=== PATIENT | male | born 1965 | race Caucasian/White ===

== ENCOUNTER 2017-03-25 12:22 | Inpatient (IN) | payer OTHER ==
--- NOTE | 2017-03-25 14:21 | EDPHY ---
H & P Stated Complaint: Abd pain, redness at old incision site,pain;referred by PCP for eval Source: Patient Exam Limitations: No limitations - Personal History Current Tetanus Diphtheria and Acellular Pertussis (TDAP): Yes - Medical/Surgical History Other PMH: Diverticulitis w/colostomy 2001. Colostomy takedown 2002. HTN - Social History Smoking Status: Never smoked HPI/ROS: CHIEF COMPLAINT: Abdominal pain, redness, shortness of breath HISTORY OF PRESENT ILLNESS: The patient complains of 3 days history of redness and pain around his abdominal incision. Patient has a history of perforated diverticulitis in 2001. He had a subsequent laparotomy with partial colectomy and colostomy placement. This was reversed 1 year later in 2002. He then developed a hernia in the same area which was repaired with mesh in 2003. No complications with this. For the past few days he has had pain, redness and swelling in this area. It is worse with palpation and movement. Yesterday was the worst day of the redness, and today has improved. No fever or chills that he has felt, but is primary care physician's office today the told me did have a fever. He has had occasional diarrhea and constipation. No bloody stools no trauma or injury. He was at his PCP's up today due to concern for heart disease due to his brother's recent from hypertrophic cardiomyopathy. He has no chest pain. He has had some occasional shortness of breath over the past month. No lower extremity erythema edema or pain. No other associated complaints or modifying factors. Patient's PCP contacted me at 10:36 a.m. notified me that he was sending the patient our facility for the above and for workup for possible strangulated hernia. At time of examination, the patient has been at this facility for 1 hour minutes. He has been in his room for less than 10 minutes at time my examination. REVIEW OF SYSTEMS: Ten systems reviewed and are negative unless otherwise noted in the HPI PAST MEDICAL HISTORY: Hypertension, ruptured diverticulitis status post surgeries as below PAST SURGICAL HISTORY: laparotomy 2002 partial colectomy and colostomy placement Laparotomy 2002 for colostomy takedown and anastomosis Laparotomy 2003 for visual hernia with mesh placement SOCIAL HISTORY: Nonsmoker. Occasional alcohol. Lives in [place]. Works as a assistant manager of operations for [employer] FAMILY HISTORY: Noncontributory EXAMINATION General Appearance: Alert, no distress Head: normocephalic, atraumatic Eyes: Pupils equal and round, no conjunctival pallor or injection ENT, Mouth: Mucous membranes moist Neck: Normal inspection, supple, non-tender Respiratory: Lungs are clear to auscultation Cardiovascular: Regular rate and rhythm Gastrointestinal: Abdomen is soft and nontender Back: non-tender, no bony abnormalities Neurological: A&O, nonfocal, normal gait Skin: Warm and dry, no rash Extremities: Nontender, no pedal edema Psychiatric: Mood and affect normal DIFFERENTIAL DIAGNOSES: Including but not limited to strangulated hernia, incarcerated hernia, abscess, seroma, cellulitis, enteritis, colitis, diverticulitis MDM: 2:08 p.m. Mild abdominal pain with erythema around the previous surgical incision. Patient was sent by primary care physician to rule out hernia. I have ordered CT scan of the abdomen pelvis. Vital signs are stable. No acute distress. 3:40 p.m. Notified by radiologist Dr. Potter. CT scan of the abdomen pelvis reveals a fluid collection of uncertain etiology between the linea alba and the surgical mesh. No hernia appreciated. 3:55 p.m. Case discussed with on-call surgeon Dr. De Souza. He will evaluate the patient in the emergency department I have re-evaluated the patient. He is resting comfortably with minimal pain. No vomiting. Vital signs stable. He has a NPO of solid since Saturday night. He had water at 8:00 a.m. this morning. 5:10 p.m. At this time I have discussed the case with Dr. Castrejon. He will assume care the patient. Patient disposition is pending surgical consultation in the emergency department. I have re-evaluated him at this time. He is resting comfortably in no acute distress. Minimal pain. (Emile Goldstein) Constitutional: Initial Vital Signs Temperature (C) 37 C 03/25/17 12:30 Heart Rate 98 03/25/17 12:30 Respiratory Rate 18 03/25/17 12:30 Blood Pressure 114/75 03/25/17 12:30 O2 Sat (%) 94 03/25/17 12:30 O2 Delivery Mode Room Air Allergies/Adverse Reactions: No Known Allergies Allergy (Verified 03/25/17 17:58) Home Medications: Medication Instructions Recorded Lisinopril [Zestril 10 mg (*)] 10 mg PO DAILY 03/25/17 Medical Decision Making Other Provider: PHYSICIAN DOCUMENTATION: The patient was evaluated and managed by the Physician Battery Filler and myself. I have reviewed the chart and agree with the findings and plan of care as documented, except abdominal exam where patient states tenderness to palpation over reddened area. Seen personally by myself at 1810. History confirmed as 3 days of symptoms, pain only 4/10 lying in the bed, declined pain medications. Physical findings as follows: Visible erythema/redness surrounding the periumbilical incision. CT performed shows fluid collection per Jovanys, rim enhancing on ventral surface of mesh. Seen by Dr. De Souza in the emergency department. Plan for admission to his service, for incision and drainage of likely infected seroma. I am the secondary supervising physician. (Yair Castrejon) - Data Points Laboratory Results: Laboratory Results 03/25/17 14:45 03/25/17 14:45 Medications Given: Potassium Chloride/Dextrose/Sod Cl (D5w 1/2 Ns W/ 20 Kcl/L) 1,000 mls @ 125 mls /hr IV CONT JESSY Stop: 09/21/17 23:14 Last Admin: 03/27/17 10:03 Dose: 1,000 mls Ertapenem 1 gm/ Sodium (Chloride) 100 mls @ 200 mls/hr IV DAILY JESSY PRN Reason: Protocol Stop: 04/24/17 23:29 Last Admin: 03/27/17 08:12 Dose: 100 mls Ketorolac Tromethamine (Toradol) 15 mg IVP Q6 JESSY Stop: 03/31/17 00:00 Last Admin: 03/27/17 11:50 Dose: 15 mg Lisinopril (Zestril) 10 mg PO DAILY JESSY Stop: 09/22/17 08:59 Last Admin: 03/27/17 08:12 Dose: 10 mg Oxycodone/Acetaminophen (Percocet 5/325) 1 - 2 tab PO Q4 PRN PRN Reason: Pain, Severe Able to Take PO Stop: 04/04/17 23:09 Last Admin: 03/26/17 10:02 Dose: 1 tab Discontinued Medications Bupivacaine HCl (Sensorcaine 0.5% Vial) Confirm Administered Dose 30 ml .ROUTE .STK-MED ONE Stop: 03/25/17 21:53 Last Admin: 03/25/17 22:58 Dose: 30 ml Cefazolin Sodium/Dextrose (Ancef 2 Gm (Premix)) 100 mls @ 200 mls/hr IV ONCALL ONE PRN Reason: Protocol Stop: 03/25/17 18:34 Last Admin: 03/25/17 22:01 Dose: 100 mls Lactated Ringer's (Lr) 1,000 mls @ 0 mls/hr IV ONCE ONE PRN Reason: Per Protocol Stop: 03/25/17 21:30 Last Admin: 03/25/17 23:38 Dose: Not Given Ketorolac Tromethamine (Toradol) 15 mg IVP ONCE PRN PRN Reason: PAIN,MANNING Stop: 03/25/17 22:00 Last Admin: 03/25/17 19:28 Dose: 15 mg Midazolam HCl (Versed) 2 mg IVP ONCALL ONE Stop: 03/25/17 21:50 Last Admin: 03/25/17 21:57 Dose: 2 mg Departure - Departure Disposition: [facility] Clinical Impression: Abdominal wall seroma Qualifiers: Encounter type: initial encounter Qualified Code(s): T88.8XXA - Other specified complications of surgical and medical care, not elsewhere classified, initial encounter Condition: Good
[2017-03-25] MEDS ORDERED: IOPAMIDOL (ISOVUE-300) 100 ML BTL ONE (15:05)
[2017-03-25 15:06] LABS: % IMMATURE GRANULYOCYTES 1.1 % (0.0-1.1); ABSOLUTE IMMATURE GRANULOCYTES 0.19 10^3/uL (0.00-0.10); ADD DIFF? NO; ADD MORPH? NO; ADD SCAN? NO; ATYPICAL LYMPHOCYTE FLAG 0 (0-99); FRAGMENT RBC FLAG 0 (0-99); HEMATOCRIT 46.8 % (40.0-51.0); LEFT SHIFT FLG 0 (0-99); LIPEMIA HEMOLYSIS FLAG 90 (0-99); MEAN CELL HEMOGLOBIN 29.7 pg (27.9-34.1); MEAN CELL HEMOGLOBIN CONCENTR. 34.2 g/dL (32.4-36.7); MEAN CELL VOLUME 86.8 fL (81.5-99.8); MEAN PLATELET VOLUME 10.7 fL (8.7-11.7); PLATELET CLUMPS FLAG 0 (0-99); PLATELET COUNT 329 10^3/uL (150-400); RED BLOOD CELL COUNT 5.39 10^6/uL (4.40-6.38); RED CELL DISTRIBUTION WIDTH 11.9 % (11.5-15.2)
[2017-03-25 15:20] LABS: ALANINE AMINOTRANSFERASE 35 IU/L (21-72); ALBUMIN 4.1 g/dL (3.5-5.0); ALKALINE PHOSPHATASE 88 IU/L (38-126); ANION GAP 14 mEq/L (8-16); ASPARTATE AMINOTRANSFERASE 23 IU/L (17-59); BILIRUBIN,TOTAL 1.1 mg/dL (0.1-1.4); BILIRUBIN-CONJUGATED 0.4 mg/dL (0.0-0.5); BILIRUBIN-UNCONJUGATED 0.7 mg/dL (0.0-1.1); CALCIUM 9.3 mg/dL (8.5-10.4); CARBON DIOXIDE 24 mEq/l (22-31); CHLORIDE 96 mEq/L (97-110); GLOMERULAR FILTRATION RATE > 60; GLUCOSE 84 mg/dL (70-100); POTASSIUM 4.5 mEq/L (3.5-5.2); SODIUM 134 mEq/L (134-144); TOTAL PROTEIN 7.4 g/dL (6.3-8.2)
[2017-03-25 15:28] LABS: INR 1.07 (0.83-1.16); PROTIME(PATIENT) 13.8 SEC (12.0-15.0)
[2017-03-25 15:29] LABS: APTT 34.9 SEC (23.0-38.0)
[2017-03-25] MEDS ORDERED: ceFAZolin 2 GM/DEXTROSE 100 ML IV ONE (18:05)
[2017-03-25] MEDS ORDERED: ONDANSETRON 4 MG/2 ML VIAL IVP PRN ×2 (18:42→22:25)
[2017-03-25] MEDS ORDERED: HYDROmorphONE/DILAUDID 1 MG/ML INJ IVP PRN ×2 (18:42→22:25)
[2017-03-25] MEDS ORDERED: D5W 1/2 NS W/ 20 KCl/L 1,000 ML IV SCH (18:45)
--- NOTE | 2017-03-25 18:48 | PDGENHP ---
History & Physical Chief Complaint: ABDOMINAL WALL PAIN History of Present Illness: 51-YEAR-OLD MALE WITH ERYTHEMA AND TENDERNESS AND FLUCTUANCE ON HIS ANTERIOR ABDOMINAL WALL AT THE OLD COLECTOMY INCISION. PATIENT HAS A HISTORY OF RUPTURED DIVERTICULITIS WITH A COLOSTOMY FOLLOWED BY COLOSTOMY TAKEDOWN AND THAT FOLLOWED BY VENTRAL HERNIA REPAIR WITH MESH. LAST SURGERY WAS IN 2003. ADMITTED AT THIS TIME FOR I AND D OF ABDOMINAL WALL ABSCESS. CT SHOWS A PROBABLE CHRONIC SEROMA THERE IS NO DEFINITE EVIDENCE OF A RECURRENT HERNIA. RISKS AND OPTIONS BEEN FULLY DISCUSSED AND HE WISHES TO PROCEED Pertinent Past, Social, Family History: PAST MEDICAL HISTORY INCLUDES HYPERTENSION/PERFORATED DIVERTICULITIS/VENTRAL HERNIA/STATUS POST COLECTOMY, COLOSTOMY, COLOSTOMY TAKEDOWN, AND VENTRAL HERNIA REPAIR. REVIEW OF SYSTEMS REVEALS NO MAJOR MEDICAL PROBLEMS ON FULL 10 POINT REVIEW OF SYSTEMS SPECIFICALLY DOES NOT SMOKE OR HAVE ANY CARDIOPULMONARY SYMPTOMS. FAMILY HISTORY IS NONCONTRIBUTORY. ALLERGIES ARE NONE. MEDICATIONS ARE LISINOPRIL Relevant Physical Exam: GENERAL: OVERWEIGHT BUT HEALTHY 51-YEAR-OLD MALE NO ACUTE DISTRESS WITH LOW-GRADE FEVER. CHEST CLEAR AND SYMMETRIC. COR REGULAR RHYTHM WITHOUT MURMURS. ABDOMEN: SOFT SLIGHTLY DISTENDED AND OVERWEIGHT/15 X 10 AREA OF ERYTHEMA OVER PREVIOUS MIDLINE SURGICAL SCAR/NO MASSES OR HERNIAS PALPABLE. GENITALIA NORMAL. EXTREMITIES FULL PULSES FULL RANGE OF MOTION. NEUROLOGIC EXAM IS PHYSIOLOGIC AND SYMMETRIC. SKIN EXAM REVEALS NO SIGNIFICANT LESIONS OTHER THAN THE ERYTHEMA AROUND THE INCISION Cardiorespiratory Assessment: IMPRESSION: INFECTED CHRONIC SEROMA. PLAN: I AND D OF THIS/RISKS AND OPTIONS FULLY DISCUSSED/HE REALIZES HE MAY EVENTUALLY NEED A MESH REMOVED IF INVOLVED IN THIS INFECTION/HE ALSO REALIZES HE IS SUSCEPTIBLE TO RECURRENT HERNIAS
[2017-03-25] MEDS ORDERED: KETOROLAC 15 MG/1 ML SDV ONE (19:09)
[2017-03-25] MEDS ORDERED: KETOROLAC 15 MG/1 ML SDV IVP PRN (19:18)
[2017-03-25 19:53] LABS: COLOR YELLOW; LEUKOCYTE ESTERASE,URINE NEGATIVE (NEGATIVE); MUCUS 2+ /lpf (NONE-1+); NITRITE,URINE NEGATIVE (NEGATIVE)
[2017-03-25] MEDS ORDERED: CEFAZOLIN 2 GM/DEXTROSE/100 ML BAG IV ONE (20:49)
[2017-03-25] MEDS ORDERED: LR 1,000 ML IV ONE (21:29)
[2017-03-25] MEDS ORDERED: MIDAZOLAM 2 MG/2 ML VIAL IVP ONE (21:49)
[2017-03-25] MEDS ORDERED: BUPIVACAINE 0.5% 30 ML SDV ONE (21:52)
--- NOTE | 2017-03-25 21:52 | PDANEPAE ---
ANE Past Medical History - Cardiovascular History Hx Hypertension: Yes Hx Arrhythmias: No Hx Chest Pain: No Hx Coronary Artery / Peripheral Vascular Disease: No Hx CHF / Valvular Disease: No Hx Palpitations: No - Pulmonary History Hx COPD: No Hx Asthma/Reactive Airway Disease: No Hx Recent Upper Respiratory Infection: No Hx Oxygen in Use at Home: No Hx Sleep Apnea: No - GI History GERD: no Hx Gastrointestinal Disorders: Yes ANE Review of Systems Review of Systems: - Exercise capacity METS (RN): 4 METS ANE Patient History - Allergies Allergies/Adverse Reactions: No Known Allergies Allergy (Verified 03/25/17 17:58) - Home Medications Home Medications: Lisinopril [Zestril 10 mg (*)] 10 mg PO DAILY 03/25/17 [Last Taken 03/25/17 08: 00] - NPO status NPO Since - Liquids (Date): 03/25/17 NPO Since - Liquids (Time): 04:00 NPO Since - Solids (Date): 03/22/17 NPO Since - Solids (Time): 12:00 - Anes Hx Anes Hx: no prior problems - Smoking Hx Smoking Status: Never smoked ANE Labs/Vital Signs - Labs Result Diagrams: 03/25/17 14:45 03/25/17 14:45 - Vital Signs Blood Pressure: 102/68 Heart Rate: 98 Respiratory Rate: 18 O2 Sat (%): 91 Height: 170.18 cm Weight: 122.47 kg ANE Physical Exam - Airway Neck exam: FROM Mallampati Score: Class 2 Mouth exam: normal dental/mouth exam - Pulmonary Pulmonary: no respiratory distress, no rales or rhonchi, clear to auscultation - Cardiovascular Cardiovascular: regular rate and rhythym, no murmur, rub, or gallop - ASA Status ASA Status: II ANE Anesthesia Plan Anesthesia Plan: general endotracheal anesthesia Total IV Anesthesia: No
[2017-03-25] MEDS ORDERED: MIDAZOLAM 2 MG/2 ML VIAL ONE (21:53)
[2017-03-25] MEDS ORDERED: PROPOFOL 200 MG/20 ML VIAL ONE (21:59)
[2017-03-25] MEDS ORDERED: fentaNYL 100 MCG/2 ML INJ ONE ×2 (21:59→22:18)
[2017-03-25] MEDS ORDERED: ONDANSETRON 4 MG/2 ML VIAL ONE (21:59)
[2017-03-25] MEDS ORDERED: DEXAMETHASONE 4 MG/ML VIAL ONE (21:59)
[2017-03-25] MEDS ORDERED: LIDOCAINE 2% 5 ML SDV ONE (22:02)
[2017-03-25] MEDS ORDERED: ROCURONIUM 50 MG/5 ML VIAL ONE (22:03)
[2017-03-25] MEDS ORDERED: PHENYLEPHRINE HCL 100 MCG/ML SYR ONE (22:17)
[2017-03-25] MEDS ORDERED: PROMETHAZINE HCL 25 MG/ML INJ IVP PRN (22:25)
[2017-03-25] MEDS ORDERED: HYDROCODONE/APAP 5/325 TAB PO PRN (22:25)
[2017-03-25] MEDS ORDERED: MEPERIDINE 25 MG/ML SYR IVP PRN (22:25)
[2017-03-25] MEDS ORDERED: LR 500 ML IV PRN (22:25)
[2017-03-25] MEDS ORDERED: NALOXONE HCL 0.4 MG/ML INJ IVP PRN (22:25)
[2017-03-25] MEDS ORDERED: fentaNYL 100 MCG/2 ML INJ IVP PRN (22:25)
[2017-03-25] MEDS ORDERED: OXYCODONE/APAP 5/325 TAB PO PRN (22:25)
[2017-03-25] MEDS ORDERED: ACETAMINOPHEN 500 MG TAB PO PRN (22:25)
[2017-03-25] MEDS ORDERED: PHENYLEPHRINE 10 MG/ML SDV ONE (22:36)
[2017-03-25] MEDS ORDERED: SUGAMMADEX SODIUM 200 MG/2 ML VIAL IVP ONE (22:42)
[2017-03-25] MEDS ORDERED: KETOROLAC 30 MG/1 ML SDV ONE (22:42)
--- NOTE | 2017-03-25 23:06 | POSTANESTH ---
Post Anesthetic Evaluation Cardiovascular Status: Normal, Stable Respiratory Status: Normal, Stable Level of Consciousness/Mental Status: Can Participate in Eval Pain Control: Adequate, Prn Tx Ordered Nausea/Vomiting Control: Adequate, Prn Tx Ordered Complications Possibly Related to Anesthesia: None Noted
--- NOTE | 2017-03-25 23:07 | POSTOPPROG ---
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
[2017-03-25] MEDS ORDERED: HYDROmorphONE/DILAUDID 2 MG/ML INJ IVP PRN (23:10)
[2017-03-25] MEDS: KETOROLAC 15 MG/1 ML SDV IVP SCH (23:55)
[2017-03-26] MEDS: D5W 1/2 NS W/ 20 KCl/L 1,000 ML IV SCH ×3 (00:07→18:18)
[2017-03-26] MEDS: ERTAPENEM 1 GM in NS 100 ML IV SCH ×2 (00:07→09:44)
[2017-03-26] MEDS: OXYCODONE/APAP 5/325 TAB PO PRN ×2 (01:35→10:02)
[2017-03-26 04:49] LABS: ABSOLUTE IMMATURE GRANULOCYTES 0.15 10^3/uL (0.00-0.10); ADD DIFF? NO; ADD MORPH? NO; ADD SCAN? NO; ATYPICAL LYMPHOCYTE FLAG 0 (0-99); FRAGMENT RBC FLAG 0 (0-99); HEMATOCRIT 43.8 % (40.0-51.0); HEMOGLOBIN 14.9 g/dL (13.7-17.5); LEFT SHIFT FLG 10 (0-99); LIPEMIA HEMOLYSIS FLAG 90 (0-99); MEAN CELL HEMOGLOBIN 30.2 pg (27.9-34.1); MEAN CELL VOLUME 88.8 fL (81.5-99.8); MEAN PLATELET VOLUME 10.8 fL (8.7-11.7); PLATELET CLUMPS FLAG 80 (0-99); PLATELET COUNT 264 10^3/uL (150-400); RED BLOOD CELL COUNT 4.93 10^6/uL (4.40-6.38); RED CELL DISTRIBUTION WIDTH 11.9 % (11.5-15.2)
[2017-03-26] MEDS: KETOROLAC 15 MG/1 ML SDV IVP SCH ×3 (05:33→18:18)
[2017-03-26] MEDS: LISINOPRIL 10 MG TAB PO SCH (09:48)
--- NOTE | 2017-03-26 10:15 | ASMTCMCOM ---
CM Note CM Note Notes: Chart reviewed, pt is a 51 y/o man admitted w/ abdominal pain. Dr. De Souza performed a laparotomy w/ abscess draiage. Therapies ordered and awaiting recommendations. Needs are TBD at this time. CM to follow. Date Signed: 03/26/2017 10:14 AM Electronically Signed By:ISMAEL Nagel
--- NOTE | 2017-03-26 14:41 | ASMTCMCOM ---
CM Note CM Note Notes: Wound Vac placed during surgery on 03/25/17. Wound Vac application initiated on [employer], need additional information and script signed by (in paper chart). Notified Georgette at [facility] #[phone] of possible home vac, also faxed further info to [facility]. D/C plan remains unclear at this time. Case Management will continue to follow. Date Signed: 03/26/2017 02:37 PM Electronically Signed By:Dania Hernandez RN
--- NOTE | 2017-03-26 14:45 | SOAPPROG ---
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 Seen and examined by Dr. De Souza. Patient is feeling great. Pain controlled. Afebrile. No enteric contents in vac. Continue routine post op care and observation. Likely to need a home wound vac unless going to SNF. Will need to determine this soon. 03/26/17 14:43 Objective: Vital Signs Temp Pulse Resp BP Pulse Ox 36.6 C 63 20 102/61 92 03/26/17 11:24 03/26/17 11:24 03/26/17 11:24 03/26/17 11:24 03/26/17 11:24 Microbiology 03/25/17 22:22 Gram Stain - Final Abdomen - Eswab Laboratory Results 03/26/17 04:21 03/25/17 03/26/17 03/27/17 05:59 05:59 05:59 Intake Total 2009 Output Total 422 Balance 1588 PT 13.8 SEC (12.0-15.0) 03/25/17 14:45 INR 1.07 (0.83-1.16) 03/25/17 14:45 ICD10 Worksheet Patient Problems: Problems Problem Status Onset Abdominal wall seroma Acute
[2017-03-27] MEDS: KETOROLAC 15 MG/1 ML SDV IVP SCH ×4 (01:13→18:17)
[2017-03-27] MEDS: D5W 1/2 NS W/ 20 KCl/L 1,000 ML IV SCH ×3 (01:15→18:14)
[2017-03-27] MEDS: LISINOPRIL 10 MG TAB PO SCH (08:12)
[2017-03-27] MEDS: ERTAPENEM 1 GM in NS 100 ML IV SCH (08:12)
--- NOTE | 2017-03-27 10:19 | SOAPPROG ---
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 No enteric contents in vac. Plan for change today with wound care. +klebsiella on cultures. Sensitive to ertapenem. Will transition to PO meds upon d/c. Advance to clears. May need to go home on clear liquid diet. Dispo: eager to go home. Will need to arrange for home vac and for home health for vac changes. D/c today if arrangements made, otherwise in am. S: minimal pain. eager to go home. no fever/chills. O: alert, nad, obese mmm no wob abd soft, vac to good suction, +BS 03/27/17 10:15 Objective: Vital Signs Temp Pulse Resp BP Pulse Ox 36.4 C 65 16 102/70 93 03/27/17 08:07 03/27/17 08:07 03/27/17 08:07 03/27/17 08:07 03/27/17 08:07 Microbiology 03/25/17 22:22 Gram Stain - Final Abdomen - Eswab Laboratory Results 03/26/17 04:21 03/26/17 03/27/17 03/28/17 05:59 05:59 05:59 Intake Total 2009 3045 652 Output Total 422 800 400 Balance 1588 2245 252 PT 13.8 SEC (12.0-15.0) 03/25/17 14:45 INR 1.07 (0.83-1.16) 03/25/17 14:45 ICD10 Worksheet Patient Problems: Problems Problem Status Onset Abdominal wall seroma Acute
[2017-03-27] MEDS: OXYCODONE/APAP 5/325 TAB PO PRN (14:13)
--- NOTE | 2017-03-27 15:03 | WOCRNPDOC ---
WOCRN Advanced Assessment Note - Skin Integrity Problem, Advanced Assess Medial Abdomen Surgical Wound/Incision Dressing Type: Black Vac Foam, Wound Vac, Xeroform Dressing Description: Clean/Dry, Intact Exudate Amount: Minimal Exudate Color: Brown, Green Exudate Characteristic(s): Liquid Integumentary Issue Intervention: Dressing Changed, Dressing Initialed & Dated Camacho Wound Tissue: Erythema, Swollen Camacho Wound Swelling: Moderate (abdominal swelling, not camacho wound tissue) Wound Bed Constitution: Smooth Tissue, Undermining (12-3 oclock 3.5 cm ) Wound Edges: Attached, Well Defined Site Odor: None Site Measurement - Head-to-Toe Length X Width X Depth (cm): 7.5x4.4x2.7 Skin Integrity Problem Comment: Surgical site with fistula mouth approx. 1x1 cm located around 8 oclock in inferior wound bed. Bowel exposed at base and subcutanous fat along margins. Flushed with ns and dried lightly with gauze. Geri HOBBS and Dr. De Souza visualized wound. It was elected to stop the wound vac to decrease potential suction on the fistula. Placed xeroform gauze over bowel and wound bed covered by x2 pieces of gauze moistened in NS. Covered with ABD. Geri FLORES in room and performed dressing change. Wound care will round again Saturday. Discussed plan with patient and father. All questions answered.
--- NOTE | 2017-03-27 16:33 | ASMTCMCOM ---
CM Note CM Note Notes: Wound vac application signed by surgical PA and faxed to [facility]. Date Signed: 03/27/2017 04:32 PM Electronically Signed By:Regi Hernandez RN
[2017-03-28] MEDS: KETOROLAC 15 MG/1 ML SDV IVP SCH ×4 (00:46→17:56)
[2017-03-28] MEDS: D5W 1/2 NS W/ 20 KCl/L 1,000 ML IV SCH ×2 (00:51→07:05)
[2017-03-28] MEDS: ERTAPENEM 1 GM in NS 100 ML IV SCH (09:17)
[2017-03-28] MEDS: LISINOPRIL 10 MG TAB PO SCH (09:18)
[2017-03-28] MEDS: OXYCODONE/APAP 5/325 TAB PO PRN (13:17)
--- NOTE | 2017-03-28 16:04 | ASMTCMCOM ---
CM Note CM Note Notes: Spoke w/Surgical PA Jerica, have cancelled wound vac for pt, Georgette at [facility] notified, CM will follow. Date Signed: 03/28/2017 04:03 PM Electronically Signed By:Regi Hernandez RN
--- NOTE | 2017-03-28 17:27 | SOAPPROG ---
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 Wound care team to see tomorrow Continue wet to dry dressings with xeroform No wound vac, don't want to increase suction in the fistula Cont IV abx for now, will transition to PO upon discharge Elemental clear diet Radiology fistula study tomorrow S: patient stating "whatever I eat comes out of the wound" including orange jello and water. No other complaints. Denies F/C, N/V/D/C O: Pt lying in bed, appears comfortable MMM Wound recently redressed, outer dressing c/d. Abd soft, nondistended, +BS Objective: Vital Signs Temp Pulse Resp BP Pulse Ox 36.6 C 64 18 147/82 H 94 03/28/17 16:00 03/28/17 16:00 03/28/17 16:00 03/28/17 16:00 03/28/17 16:00 Microbiology 03/25/17 22:22 Gram Stain - Final Abdomen - Eswab Laboratory Results 03/26/17 04:21 03/27/17 03/28/17 03/29/17 05:59 05:59 05:59 Intake Total 3045 2972 810 Output Total 800 1150 2575 Balance 2245 1822 -1765 PT 13.8 SEC (12.0-15.0) 03/25/17 14:45 INR 1.07 (0.83-1.16) 03/25/17 14:45 ICD10 Worksheet Patient Problems: Problems Problem Status Onset Abdominal wall seroma Acute
[2017-03-29] MEDS: KETOROLAC 15 MG/1 ML SDV IVP SCH ×5 (00:57→23:42)
[2017-03-29] MEDS: LISINOPRIL 10 MG TAB PO SCH (08:16)
[2017-03-29] MEDS: ERTAPENEM 1 GM in NS 100 ML IV SCH (08:16)
[2017-03-29 09:18] LABS: % IMMATURE GRANULYOCYTES 0.6 % (0.0-1.1); ABSOLUTE IMMATURE GRANULOCYTES 0.06 10^3/uL (0.00-0.10); ADD DIFF? NO; ADD MORPH? NO; ADD SCAN? NO; ATYPICAL LYMPHOCYTE FLAG 20 (0-99); FRAGMENT RBC FLAG 0 (0-99); HEMATOCRIT 41.6 % (40.0-51.0); HEMOGLOBIN 14.1 g/dL (13.7-17.5); LEFT SHIFT FLG 0 (0-99); LIPEMIA HEMOLYSIS FLAG 90 (0-99); MEAN CELL HEMOGLOBIN 29.6 pg (27.9-34.1); MEAN CELL HEMOGLOBIN CONCENTR. 33.9 g/dL (32.4-36.7); MEAN CELL VOLUME 87.2 fL (81.5-99.8); MEAN PLATELET VOLUME 10.4 fL (8.7-11.7); PLATELET CLUMPS FLAG 0 (0-99); PLATELET COUNT 322 10^3/uL (150-400); RED BLOOD CELL COUNT 4.77 10^6/uL (4.40-6.38); RED CELL DISTRIBUTION WIDTH 11.7 % (11.5-15.2)
[2017-03-29 09:30] LABS: ALANINE AMINOTRANSFERASE 29 IU/L (21-72); ALBUMIN 3.2 g/dL (3.5-5.0); ALKALINE PHOSPHATASE 63 IU/L (38-126); ANION GAP 10 mEq/L (8-16); ASPARTATE AMINOTRANSFERASE 17 IU/L (17-59); BILIRUBIN,TOTAL 0.6 mg/dL (0.1-1.4); CALCIUM 8.9 mg/dL (8.5-10.4); CARBON DIOXIDE 24 mEq/l (22-31); CHLORIDE 107 mEq/L (97-110); CREATININE 0.8 mg/dL (0.7-1.3); GLOMERULAR FILTRATION RATE > 60; GLUCOSE 82 mg/dL (70-100); POTASSIUM 4.5 mEq/L (3.5-5.2); SODIUM 141 mEq/L (134-144); TOTAL PROTEIN 6.1 g/dL (6.3-8.2)
[2017-03-29] MEDS: OXYCODONE/APAP 5/325 TAB PO PRN (10:06)
[2017-03-29] MEDS ORDERED: SKIN ADHESIVE (DERMABOND) 1 EACH TP ONE (10:30)
--- NOTE | 2017-03-29 12:28 | ASMTCMCOM ---
CM Note CM Note Notes: CM spoke w/pt, wound vac dc'd. Will likely discharge with HH RN for woundcare, CM sent referral to [facility], pt states he will stay at his father's house in [place] for the 1st week post hospital stay. CM to notifiy homecare agency of father's address, pt needed to look it up. Date Signed: 03/29/2017 12:27 PM Electronically Signed By:Regi Hernandez RN
--- NOTE | 2017-03-29 12:34 | SOAPPROG ---
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 Dermabond applied to the fistula today. May consider rad fistula study if doesn' t imprve Continue wet to dry dressings with xeroform No wound vac, don't want to increase suction in the fistula Cont IV abx for now, will transition to PO upon discharge Elemental clear diet Seen c Dr. De Souza S: patient feeling much better today. Tolerated clear diet without a lot of discharge from the wound. Passing gas and having BMs. No other complaints. Denies F/C, N/V/D/C O: Pt lying in bed, appears comfortable MMM Wound pink with moderate discharge. Dermabond applied to fistula. Abd soft, nondistended, +BS Objective: Vital Signs Temp Pulse Resp BP Pulse Ox 36.4 C 75 12 136/89 H 91 L 03/29/17 08:00 03/29/17 08:00 03/29/17 08:00 03/29/17 08:16 03/29/17 08:00 Microbiology 03/25/17 22:22 Gram Stain - Final Abdomen - Eswab Laboratory Results 03/29/17 09:02 03/29/17 09:02 03/28/17 03/29/17 03/30/17 05:59 05:59 05:59 Intake Total 2972 910 Output Total 1150 6375 Balance 1822 -1665 PT 13.8 SEC (12.0-15.0) 03/25/17 14:45 INR 1.07 (0.83-1.16) 03/25/17 14:45 ICD10 Worksheet Patient Problems: Problems Problem Status Onset Abdominal wall seroma Acute
--- NOTE | 2017-03-29 15:24 | ASMTCMCOM ---
CM Note CM Note Notes: Patient needs [facility], various referrals sent. Awaiting response. CM to follow. Date Signed: 03/29/2017 03:24 PM Electronically Signed By:Hue Noble RN
--- NOTE | 2017-03-29 16:17 | ASMTCMCOM ---
CM Note CM Note Notes: Patient has changed his mind and will stay with his mother in [place] [address]. Address relayed to [facility] who has accepted patient. Patient want contact through his cell phone number. CM to follow. Date Signed: 03/29/2017 04:16 PM Electronically Signed By:Hue Noble RN
[2017-03-30] MEDS: KETOROLAC 15 MG/1 ML SDV IVP SCH ×4 (05:35→23:27)
[2017-03-30] MEDS: OXYCODONE/APAP 5/325 TAB PO PRN ×2 (05:35→23:27)
--- NOTE | 2017-03-30 09:48 | SOAPPROG ---
SOAP Progress Note Assessment/Plan: Assessment: Fistula still actively draining, less per patient report. Changed dressing today, will cont dressing changes as needed cont modified clear diet with ensure supplementation, needs to stay hydrated and get protein Plan: 03/30/17 09:47 Subjective: when can I go home Objective: Vital Signs Temp Pulse Resp BP Pulse Ox 36.7 C 73 16 121/85 H 92 03/30/17 07:41 03/30/17 07:41 03/30/17 07:41 03/30/17 07:41 03/30/17 07:41 Microbiology 03/25/17 22:22 Gram Stain - Final Abdomen - Eswab Laboratory Results 03/29/17 09:02 03/29/17 09:02 03/29/17 03/30/17 03/31/17 05:59 05:59 05:59 Intake Total 910 480 Output Total 2575 350 Balance -1665 130 PT 13.8 SEC (12.0-15.0) 03/25/17 14:45 INR 1.07 (0.83-1.16) 03/25/17 14:45 ICD10 Worksheet Patient Problems: Problems Problem Status Onset Abdominal wall seroma Acute
[2017-03-30] MEDS: LISINOPRIL 10 MG TAB PO SCH (10:03)
[2017-03-30] MEDS: ERTAPENEM 1 GM in NS 100 ML IV SCH (10:03)
[2017-03-31] MEDS ORDERED: IBUPROFEN 600 MG TAB PO PRN (08:08)
--- NOTE | 2017-03-31 09:13 | SOAPPROG ---
SOAP Progress Note Assessment/Plan: Assessment: Fistula output still but a few 100 cc every shift, saturating 4x4s. He continues to be nontoxic and is tolerating his low residue diet with Ensure supplementation. Wound bed is appropriate skin edges look a little macerated, will have wound Care evaluate today. Home early next week discussed that this will be a long-term issue Plan: 03/30/17 09:47 03/31/17 09:13 Subjective: Lot of questions Objective: Vital Signs Temp Pulse Resp BP Pulse Ox 36.8 C 71 18 144/96 H 92 03/31/17 08:00 03/31/17 08:00 03/31/17 08:00 03/31/17 08:00 03/31/17 08:00 Microbiology 03/25/17 22:22 Gram Stain - Final Abdomen - Eswab Laboratory Results 03/29/17 09:02 03/29/17 09:02 03/30/17 03/31/17 04/01/17 05:59 05:59 05:59 Intake Total 480 365 Output Total 350 Balance 130 365 PT 13.8 SEC (12.0-15.0) 03/25/17 14:45 INR 1.07 (0.83-1.16) 03/25/17 14:45 ICD10 Worksheet Patient Problems: Problems Problem Status Onset Abdominal wall seroma Acute
[2017-03-31] MEDS: ERTAPENEM 1 GM in NS 100 ML IV SCH (10:06)
[2017-03-31] MEDS: LISINOPRIL 10 MG TAB PO SCH (10:06)
[2017-04-01] MEDS: ERTAPENEM 1 GM in NS 100 ML IV SCH (08:39)
[2017-04-01] MEDS: LISINOPRIL 10 MG TAB PO SCH (08:40)
--- NOTE | 2017-04-01 09:27 | SOAPPROG ---
SOAP Progress Note Assessment/Plan: Assessment: 51 Y M c enteric fistula that continues to drain Continue wound care Continue diet clears + ensures Discussed c Dr. De Souza S: patient eager to go home. Tolerating clear diet without a lot of discharge from the wound. Passing gas and having BMs. No other complaints. Denies F/C, N/ V/D/C O: Afebrile, nontoxic Pt lying in bed, appears comfortable MMM Wound recently redressed. Saturating 4x4s overnight. Abd soft, nondistended, +BS 04/01/17 15:26 Objective: Vital Signs Temp Pulse Resp BP Pulse Ox 36.4 C 77 14 121/89 H 93 04/01/17 08:00 04/01/17 08:00 04/01/17 08:00 04/01/17 08:40 04/01/17 08:00 Microbiology 03/25/17 22:22 Gram Stain - Final Abdomen - Eswab Laboratory Results 03/29/17 09:02 03/29/17 09:02 03/31/17 04/01/17 04/02/17 05:59 05:59 05:59 Intake Total 365 Balance 365 PT 13.8 SEC (12.0-15.0) 03/25/17 14:45 INR 1.07 (0.83-1.16) 03/25/17 14:45 ICD10 Worksheet Patient Problems: Problems Problem Status Onset Abdominal wall seroma Acute
--- NOTE | 2017-04-01 14:08 | WOCRNPDOC ---
WOCR[facility]sey Advanced Assessment Note - Skin Integrity Problem, Advanced Assess Medial Abdomen Surgical Wound/Incision Dressing Type: ABD Pad, Gauze Dressing Description: Intact, Shadowed Exudate Amount: Excessive Exudate Color: Yellow, Brown, Green Exudate Characteristic(s): Other Other Exudate Characteristic(s): Enteric Integumentary Issue Intervention: Dressing Changed, Dressing Initialed & Dated Kelsey Wound Tissue: Erythema (dermatitis) Kelsey Wound Swelling: Moderate Wound Bed Color: Red Wound Bed Constitution: Granulation Tissue (80%), Smooth Tissue (20%) Wound Edges: Attached, Scarred Site Odor: None Skin Integrity Problem Comment: Fistula with active drainage. Kelsey wound skin mildly irritated. Hair needs to be clipped soon. May be possible to isolate fistula and then vac the tissue surrounding the stomtatized fistula mouth. Patient may benefit from bowel rest and TPN to encourage fistula tract to close. Placed x2 pieces of moist gauze into wound bed and then applied clear zinc cream to kelsey wound skin. Covered gauze with ABD and then secured with medipore tape. Renea PEGUERO and Melania FLORES observer in room for care.
--- NOTE | 2017-04-01 14:13 | ASMTCMCOM ---
CM Note CM Note Notes: Professional HC informed CM that pts insurance is not in network. CM met w/ pt for dispo planning and informed him of this information. Pt is agreeable for CM to make a referral to [facility]. CM spoke w/ [facility] and they are able to take him when he is medically stable to d/c. CM to follow. Date Signed: 04/01/2017 02:13 PM Electronically Signed By:ISMAEL Nagel
--- NOTE | 2017-04-02 05:32 | GOP ---
[f rep st] OPERATIVE REPORT DATE OF OPERATION: 03/25/2017 SURGEON: Carson De Souza MD BRASSIERE CUP MOLD CUTTER: There was no professional nursing assistant. ANESTHESIOLOGIST: Alaina Smiley DO. PREOPERATIVE DIAGNOSIS: Incisional abscess. 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 PROCEDURE PERFORMED: Laparotomy with abscess drainage, removal of foreign body and closure of enteric fistula. FINDINGS: Midline abscess associated with old dual sided mesh and caused by small bowell fistula ESTIMATED BLOOD LOSS: Negligible. There were no complications. He was taken to the recovery room in good condition. DESCRIPTION OF PROCEDURE: The patient was taken to the operating room where he received satisfactory general endotracheal anesthesia with Dr. Smiley. He was placed in supine position, prepped and draped in the usual sterile fashion. A vertical incision was made through his previous old midline incision. Dissection was extended down through the subcutaneous tissue into the abscess cavity. This was suctioned clear and it was obvious that the previous mesh was floating in a sea of pus. This was somewhat bile-stained. The mesh was freed up around its entire circumference. The mesh appeared to be a dual-sided mesh. After freeing the mesh, adherence to a piece of small bowel was apparent. Appeared to have a small bowel fistula from the mesh causing the contamination and the infection. The fistula was well defined. It was closed with a 3-0 Vicryl pursestring suture. The wound was copiously irrigated. Hemostasis was assured. The wound was then dressed with Xeroform gauze and covered with a wound VAC. He tolerated the procedure quite well. /[id number]/MODL MTDD
[2017-04-02] MEDS: ERTAPENEM 1 GM in NS 100 ML IV SCH (09:50)
[2017-04-02] MEDS: LISINOPRIL 10 MG TAB PO SCH (09:51)
--- NOTE | 2017-04-02 15:07 | SOAPPROG ---
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 Seen by myself and by Dr. De Souza earlier today. Patient tolerating a low residue diet. Enteric contents do drain from fistula site. If this is manageable for patient we could consider home soon with frequent wound care. Suspect this will be a long time problem. Could also consider TPN and NPO. Will defer to Dr. De Souza. Will check on drainage later today. S: when he eats or drinks his dressings get wet O: alert, nad, obese mmm no wob abd soft, dressings very dry--small volume thin light yellow-green drainage on first one or two layers of gauze--not saturated 04/02/17 15:03 Objective: Vital Signs Temp Pulse Resp BP Pulse Ox 36.7 C 78 18 114/81 H 91 L 04/02/17 07:40 04/02/17 07:40 04/02/17 07:40 04/02/17 07:40 04/02/17 07:40 Microbiology 03/25/17 22:22 Gram Stain - Final Abdomen - Eswab Anaerobic Culture - Final Klebsiella Pneumoniae Ssp Pneu Prevotella Emilia Streptococcus Anginosus Group Laboratory Results 03/29/17 09:02 03/29/17 09:02 04/01/17 04/02/17 04/03/17 05:59 05:59 05:59 Intake Total 675 Balance 675 PT 13.8 SEC (12.0-15.0) 03/25/17 14:45 INR 1.07 (0.83-1.16) 03/25/17 14:45 ICD10 Worksheet Patient Problems: Problems Problem Status Onset Abdominal wall seroma Acute
[2017-04-03] MEDS: LISINOPRIL 10 MG TAB PO SCH (08:38)
[2017-04-03] MEDS: ERTAPENEM 1 GM in NS 100 ML IV SCH (08:38)
--- NOTE | 2017-04-03 09:52 | SOAPPROG ---
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 Suspect this will be a mcc problem. Dispo: to home today. Has had wound care instructions and feels comfortable with home dressing changes. Understands nutritional needs. S: patient eager to go home. Tolerating diet. Passing gas and having BMs. No other complaints. Denies F/C, N/V/D/C O: Afebrile, nontoxic Pt lying in bed, appears comfortable MMM Dressing beginning to have yellow enteric content shadowing. Was changed by wound care earlier this morning. Abd soft, nondistended Objective: Vital Signs Temp Pulse Resp BP Pulse Ox 36.5 C 74 18 111/74 93 04/03/17 04:00 04/03/17 04:00 04/03/17 04:00 04/03/17 04:00 04/03/17 04:00 Laboratory Results 03/29/17 09:02 03/29/17 09:02 04/02/17 04/03/17 04/04/17 05:59 05:59 05:59 Intake Total 675 300 400 Output Total 250 400 Balance 675 50 0 PT 13.8 SEC (12.0-15.0) 03/25/17 14:45 INR 1.07 (0.83-1.16) 03/25/17 14:45 ICD10 Worksheet Patient Problems: Problems Problem Status Onset Abdominal wall seroma Acute
--- NOTE | 2017-04-03 09:54 | PDIAF ---
- Diagnosis Diagnosis: enteric fistula Code Status: Full Code - Medication Management Discharge Medications: Medications to Continue on Transfer Lisinopril [Zestril 10 mg (*)] 10 mg PO DAILY 03/25/17 [Last Taken 03/25/17 08: 00] Discharge Medications: Refer to the Discharge Home Medication list for PRN reason. - Orders Services needed: Home Care, Registered Nurse, Physical Therapy Home Care Face to Face: I certify that this patient was under my care and that I had the required [id number] encounter meeting the encounter requirements on the discharge day. My findings support the fact that the patient is homebound as defined in Home Care Face to Face Continued: CMS Chapter 7 Medicare Benefits Manual 30.1.1 , The condition of the patient is such that there exists a normal inability to leave home and consequently, leaving home would require a considerable and taxing effort. Diet Recommendation: other (clears + ensures ) - Follow Up Care Current Providers and Referrals: Carson De Souza MD [Medical Doctor] - follow up in 1 week Jesus Colon MD [Primary Care Provider] - As per Instructions
[2017-04-03] MEDS: OXYCODONE/APAP 5/325 TAB PO PRN (11:14)
[2017-04-03 12:09] VITALS: BP 112/72
--- NOTE | 2017-04-03 12:39 | ASMTCMCOM ---
CM Note CM Note Notes: Spoke w/pt re; dc poc. Will now dc to father's home, homecare agency changed to [facility], address of father's home given. Spoke w/Yarelis at [facility] and they have accepted pt, final orders faxed. Date Signed: 04/03/2017 12:39 PM Electronically Signed By:Regi Hernandez RN
[2017-04-03 15:14] VITALS: PULSE 82; RESP 10; TEMP 97.7; O2SAT 94
== END 2017-04-03 15:50 | disposition home health service (06) | DRG 908 ==
LOC: F3E 18:35
PROVIDERS: ADMIT Surgery; ATTEND Surgery
PROC: 0DQ80ZZ Repair Small Intestine, Open Approach (ICD-10-PCS; principal; 2017-03-25 21:00)
PROC: 0WPF0JZ Removal of Synthetic Substitute from Abdominal Wall, Open Approach (ICD-10-PCS; principal; 2017-03-25 21:00)
PROC: 0W9F0ZZ Drainage of Abdominal Wall, Open Approach (ICD-10-PCS; principal; 2017-03-25 21:00)
DX: T85.79XA Infection and inflammatory reaction due to other internal prosthetic devices, implants and grafts, initial encounter (principal); L02.211 Cutaneous abscess of abdominal wall; K63.2 Fistula of intestine; I10 Essential (primary) hypertension; E66.3 Overweight
CPT/HCPCS: 82947-QW; 96374; 97116-GP; 97161-GP; 97165-GO; J0690; J1100; J1170; J1335; J1885; J2250; J2370; J2405; J2704; J3010; Q9967

== ENCOUNTER → 2017-04-16 | Outpatient (CLI) | payer OTHER ==
[~2017-04-16] MED LIST: IOPAMIDOL (ISOVUE-370) 150 ML BTL IV ONE
== END ==
LOC: FIMAGING 10:25
PROVIDERS: ATTEND Surgery
DX: K63.2 Fistula of intestine (principal)
CPT/HCPCS: Q9967

== ENCOUNTER 2017-04-30 06:09 | Inpatient (IN) | payer OTHER ==
[~2017-04-30 06:09] MED LIST changes: -IOPAMIDOL (ISOVUE-370) 150 ML BTL IV ONE; +cefOXitin SODIUM 2 GM in D5W 100 ML IV ONE
[2017-04-30] MEDS ORDERED: LIDOCAINE 1% 2 ML INJ ID PRN (06:37)
[2017-04-30] MEDS ORDERED: LR 1,000 ML IV ONE (06:37)
[2017-04-30] MEDS ORDERED: LIDOCAINE 1% 2 ML INJ ONE (06:42)
[2017-04-30] MEDS ORDERED: BUPIVACAINE 0.5% 30 ML SDV ONE (07:01)
[2017-04-30] MEDS ORDERED: HEPARIN 1000 UNIT/1 ML MDV ONE (07:02)
[2017-04-30] MEDS ORDERED: ceFAZolin 1 GM/5 ML SYR ONE (07:02)
[2017-04-30] MEDS ORDERED: MIDAZOLAM 2 MG/2 ML VIAL IVP ONE (07:17)
--- NOTE | 2017-04-30 07:19 | PDANEPAE ---
ANE History of Present Illness presents for exploratory laparoscopy vs laparotomy ANE Past Medical History - Cardiovascular History Hx Hypertension: Yes Hx Arrhythmias: No Hx Chest Pain: No Hx Coronary Artery / Peripheral Vascular Disease: No Hx CHF / Valvular Disease: No Hx Palpitations: No - Pulmonary History Hx COPD: No Hx Asthma/Reactive Airway Disease: No Hx Recent Upper Respiratory Infection: No Hx Oxygen in Use at Home: No Hx Sleep Apnea: No Sleep Apnea Screening Result - Last Documented: Positive - Neurologic History Hx Cerebrovascular Accident: No Hx Seizures: No Hx Dementia: No - Endocrine History Hx Diabetes: No Obesity: yes - Renal History Hx Renal Disorders: No - Liver History Hx Hepatic Disorders: No - Neurological & Psychiatric Hx Hx Neurological and Psychiatric Disorders: No - Cancer History Hx Cancer: No - Congenital Disorder History Hx Congenital Disorders: No - GI History GERD: no Hx Gastrointestinal Disorders: Yes Gastrointestinal History Comment: NON-HEALING ABDOMINAL WOUND - Other Health History Other Health History: NONE - Chronic Pain History Chronic Pain: No - Surgical History Prior Surgeries: abdominal, plate LLE, discectomy L5,S1. 2001 PERF DIVERTICULITIS, COLOSTOMY, 4MTHS REVISED. HERNIA REPAIR, MESH CAUSED FISTULA INFECTED ANE Review of Systems Review of systems is: negative Review of Systems: - Exercise capacity METS (RN): 4 METS ANE Patient History - Allergies Allergies/Adverse Reactions: No Known Allergies Allergy (Verified 03/25/17 17:58) - Home Medications Home medications: home medication list seen and reviewed Home Medications: Lisinopril [Zestril 10 mg (*)] 10 mg PO DAILY 03/25/17 [Last Taken 04/15/17] - NPO status NPO Since - Liquids (Date): 04/29/17 NPO Since - Liquids (Time): 20:00 NPO Since - Solids (Date): 04/29/17 NPO Since - Solids (Time): 20:00 - Anes Hx Anes Hx: no prior problems - Smoking Hx Smoking Status: Never smoked - Family Anes Hx Family Hx Anesthesia Complications: none ANE Labs/Vital Signs - Vital Signs Blood Pressure: 110/84 Heart Rate: 98 Respiratory Rate: 16 O2 Sat (%): 93 Height: 170.18 cm Weight: 111.13 kg ANE Physical Exam - Airway Neck exam: FROM Mallampati Score: Class 2 Mouth exam: normal dental/mouth exam - Pulmonary Pulmonary: no respiratory distress - Cardiovascular Cardiovascular: regular rate and rhythym - ASA Status ASA Status: II ANE Anesthesia Plan Anesthesia Plan: general endotracheal anesthesia Specialized Airway: video laryngoscope
[2017-04-30] MEDS ORDERED: PROPOFOL 200 MG/20 ML VIAL ONE ×2 (07:23)
[2017-04-30] MEDS ORDERED: fentaNYL 100 MCG/2 ML INJ ONE ×4 (07:23→11:30)
[2017-04-30] MEDS ORDERED: ONDANSETRON 4 MG/2 ML VIAL ONE ×2 (07:24→11:04)
[2017-04-30] MEDS ORDERED: ROCURONIUM 100 MG/10 ML VIAL ONE (07:24)
[2017-04-30] MEDS ORDERED: DEXAMETHASONE 4 MG/ML VIAL ONE (07:24)
[2017-04-30] MEDS ORDERED: LIDOCAINE 2% 5 ML SDV ONE (07:24)
--- NOTE | 2017-04-30 07:41 | PDHPUP ---
History & Physical Update H&P update statement: This history and physical update is based on an assessment of the patient which was completed after admission or registration (within 24 hours), but prior to the surgery/procedure. H&P update: H&P reviewed & patient examined, no change in patient's condition since H&P completed
[2017-04-30] MEDS ORDERED: SUGAMMADEX SODIUM 200 MG/2 ML VIAL IVP ONE (08:00)
[2017-04-30] MEDS ORDERED: HYDROmorphONE/DILAUDID 2 MG/ML INJ ONE (08:24)
[2017-04-30] MEDS ORDERED: ACETAMINOPHEN 500 MG TAB PO PRN (09:04)
[2017-04-30] MEDS ORDERED: PROMETHAZINE HCL 25 MG/ML INJ IVP PRN (09:04)
[2017-04-30] MEDS ORDERED: HYDROCODONE/APAP 5/325 TAB PO PRN (09:04)
[2017-04-30] MEDS ORDERED: LABETALOL HCL 50 MG/10 ML SYR IVP PRN (09:04)
[2017-04-30] MEDS ORDERED: ONDANSETRON 4 MG/2 ML VIAL IVP PRN ×2 (09:04→10:18)
[2017-04-30] MEDS ORDERED: OXYCODONE/APAP 5/325 TAB PO PRN (09:04)
[2017-04-30] MEDS ORDERED: NALOXONE HCL 0.4 MG/ML INJ IVP PRN ×2 (09:04→10:20)
[2017-04-30] MEDS ORDERED: ALBUTEROL 3 ML DEYVIAL IH PRN (09:04)
[2017-04-30] MEDS ORDERED: LR 500 ML IV PRN (09:04)
--- NOTE | 2017-04-30 10:12 | POSTOPPROG ---
Post Op Note Date of Operation: 04/30/17 Surgeon: Carson De Souza [employer] Porter: Geri Kumar Anesthesiologist: Gianfranco Bains Anesthesia: GET(General Endotracheal) Pre-op Diagnosis: enterocutanous fistula Post-op Diagnosis: same, ventral hernia, adhesions Indication: 51 Y M complicated PSH of abd, failed conservative therapy for EC fistula. Procedure: See below for list. Findings: many adhesions, old mesh, purulence, fistula loops identified, VH Inf/Abcess present in the surg proc area at time of surgery?: Yes Depth: Deep Incisional (Fascial) EBL: 50-100 Complications: none Specimen(s): mesh, enterocutanous fistula, small bowel x 2 to pathology. Procedures: 1. ex-laparoscopy 2. laparotomy 3. resection of enterocutaneous fistula 4. small bowel resection x 2 5. drainage of abdominal wall abscess 6. removal of foreign body mesh 7. wound vac placement 8. adhesiolysis
[2017-04-30] MEDS ORDERED: KETOROLAC 15 MG/1 ML SDV ONE (11:03)
[2017-04-30] MEDS: fentaNYL 100 MCG/2 ML INJ IVP PRN ×4 (11:09→12:03)
[2017-04-30] MEDS: KETOROLAC 15 MG/1 ML SDV IVP SCH ×2 (11:23→18:31)
[2017-04-30] MEDS: NS W/ 20 KCl/L 1,000 ML IV SCH ×2 (12:33→21:33)
[2017-04-30] MEDS: HYDROmorphONE/DILAUDID 6 MG/30 ML PCA IV PRN (12:55)
[2017-04-30] MEDS: cefOXitin SODIUM 1 GM in D5W 50 ML IV SCH ×2 (13:02→18:31)
[2017-04-30] MEDS: METOCLOPRAMIDE 10 MG/2 ML VIAL IVP SCH ×2 (13:49→18:31)
[2017-05-01] MEDS: cefOXitin SODIUM 1 GM in D5W 50 ML IV SCH ×5 (00:58→23:02)
[2017-05-01] MEDS: KETOROLAC 15 MG/1 ML SDV IVP SCH ×2 (00:59→05:10)
[2017-05-01] MEDS: METOCLOPRAMIDE 10 MG/2 ML VIAL IVP SCH ×5 (00:59→23:02)
[2017-05-01] MEDS: HYDROmorphONE/DILAUDID 6 MG/30 ML PCA IV PRN ×2 (02:17→15:13)
[2017-05-01 05:14] LABS: HEMOGLOBIN 13.2 g/dL (13.7-17.5)
[2017-05-01] MEDS: NS W/ 20 KCl/L 1,000 ML IV SCH ×3 (05:17→20:20)
[2017-05-01 05:23] LABS: ANION GAP 11 mEq/L (8-16); CALCIUM 8.5 mg/dL (8.5-10.4); CARBON DIOXIDE 26 mEq/l (22-31); CHLORIDE 98 mEq/L (97-110); CREATININE 2.1 mg/dL (0.7-1.3); GLOMERULAR FILTRATION RATE 33; GLUCOSE 97 mg/dL (70-100); SODIUM 135 mEq/L (134-144)
[2017-05-01] MEDS: LISINOPRIL 10 MG TAB PO SCH (08:00)
[2017-05-01] MEDS ORDERED: NS 500 ML IV ONE (11:25)
--- NOTE | 2017-05-01 11:33 | SOAPPROG ---
SOAP Progress Note Assessment/Plan: Assessment/Plan: 51 Y M s/p laparoscopy, laparotomy, resection of enterocutaneous fistula, SBR x 2, VH repair, wound vac placement, POD#1. Also seen by Dr. DeS ouza this am. Overall doing well aside from increased Cr/BUN. ARF. Cr 2.1 this am. Normal on prior visits. NS bolus this am, increase basal IVF rate. Hold toradol. D/c lovenox, change to heparin (starts tomorrow, POD#2) . Labs in am. Consider hospitalist/renal consult tomorrow if unchanged or worse. Wound vac. Plan for change on Sat. D/w'ed both wound care and case management today. Ileus. No N/V. Advance to clears when improved bowel function. Continue IV abx 2/2 contamination 2/2 EC fistula. S: feeling pretty good. no flatus. no n/v. pain controlled. O: alert, nad sitting oob in chair, semireclined. no wob abd soft, wound vac to suction, appropriately tender. 05/01/17 11:29 Objective: Vital Signs Temp Pulse Resp BP Pulse Ox 36.9 C 78 16 96/63 L 96 05/01/17 10:00 05/01/17 10:00 05/01/17 08:00 05/01/17 10:00 05/01/17 10:00 Microbiology 04/30/17 08:11 Gram Stain - Final Abdomen - Eswab Laboratory Results 05/01/17 04:36 05/01/17 04:36 04/30/17 05/01/17 05/02/17 05:59 05:59 05:59 Intake Total 3490 Output Total 275 250 Balance 3215 -250 ICD10 Worksheet Patient Problems: Problems Problem Status Onset Abdominal wall seroma Acute
--- NOTE | 2017-05-01 16:14 | ASMTCMCOM ---
CM Note CM Note Notes: Spoke w/surgery PA, pt will need home wound vac. CM submitted application to [facility] for a ready vac and faxed appropriate signed paperwork. CM also notified Yarelis at [facility] for RN to monitor wound vac, dc date unclear. Current DC Plan: Pt will dc home to father's home with wound vac and [facility] (RN) Date Signed: 05/01/2017 04:14 PM Electronically Signed By:Regi Hernandez RN
[2017-05-01] MEDS ORDERED: NS 1,000 ML IV ONE (17:41)
[2017-05-02] MEDS: NS W/ 20 KCl/L 1,000 ML IV SCH ×2 (02:57→23:45)
[2017-05-02 05:18] LABS: ANION GAP 9 mEq/L (8-16); CALCIUM 8.1 mg/dL (8.5-10.4); CARBON DIOXIDE 22 mEq/l (22-31); CHLORIDE 107 mEq/L (97-110); CREATININE 1.3 mg/dL (0.7-1.3); GLOMERULAR FILTRATION RATE 58; GLUCOSE 93 mg/dL (70-100); POTASSIUM 5.9 mEq/L (3.5-5.2); SODIUM 138 mEq/L (134-144)
[2017-05-02] MEDS: METOCLOPRAMIDE 10 MG/2 ML VIAL IVP SCH ×4 (05:33→23:42)
[2017-05-02] MEDS: cefOXitin SODIUM 1 GM in D5W 50 ML IV SCH ×4 (05:33→23:42)
[2017-05-02] MEDS: HYDROmorphONE/DILAUDID 6 MG/30 ML PCA IV PRN (06:09)
[2017-05-02] MEDS ORDERED: NALOXONE HCL 0.4 MG/ML INJ IVP PRN (08:31)
[2017-05-02] MEDS ORDERED: ENOXAPARIN 40 MG/0.4 ML SYR SC SCH (09:00)
[2017-05-02] MEDS: HEPARIN 5,000 UNIT/0.5 ML SYR SC SCH ×4 (09:46→21:34)
[2017-05-02] MEDS: LISINOPRIL 10 MG TAB PO SCH (09:46)
--- NOTE | 2017-05-02 12:16 | SOAPPROG ---
SOAP Progress Note Assessment/Plan: Assessment: 51-year-old male status post laparoscopy, laparotomy resection of enterocutaneous fistula, small bowel resection with ventral hernia repair, wound VAC placement postop day 2. Not passing any flatus, pain well controlled on Dilaudid SALES OPERATIONS CONSULTANT, ambulating well. Physical exam Very alert, moves around the room easily Chest CTA bilaterally Abdomen wound VAC in place without any surrounding erythema or significant discharge from the wound VAC abdomen very soft, mildly distended, no bowel sounds upon auscultation greater than 1 minute Plan: Encouraged ambulation and explained the pathophysiology ileus to patient Wound VAC scheduled to be changed Saturday, we will attempt to view the wound at the time of change. Seen examined by Dr. De Souza. 05/02/17 12:14 Objective: Vital Signs Temp Pulse Resp BP Pulse Ox 36.9 C 93 18 104/66 93 05/02/17 09:50 05/02/17 09:50 05/02/17 09:50 05/02/17 09:50 05/02/17 09:50 Microbiology 04/30/17 08:11 Gram Stain - Final Abdomen - Eswab Laboratory Results 05/01/17 04:36 05/02/17 04:53 05/01/17 05/02/17 05/03/17 05:59 05:59 05:59 Intake Total 3490 5647 Output Total 275 1150 Balance 8539 3821 ICD10 Worksheet Patient Problems: Problems Problem Status Onset Abdominal wall seroma Acute
[2017-05-03] MEDS: HYDROmorphONE/DILAUDID 6 MG/30 ML PCA IV PRN ×2 (00:03→17:39)
[2017-05-03] MEDS: METOCLOPRAMIDE 10 MG/2 ML VIAL IVP SCH ×4 (06:00→23:02)
[2017-05-03] MEDS: cefOXitin SODIUM 1 GM in D5W 50 ML IV SCH ×4 (06:00→23:02)
[2017-05-03] MEDS: HEPARIN 5,000 UNIT/0.5 ML SYR SC SCH ×3 (06:01→21:33)
[2017-05-03] MEDS: NS W/ 20 KCl/L 1,000 ML IV SCH ×3 (06:29→20:01)
[2017-05-03] MEDS: LISINOPRIL 10 MG TAB PO SCH (08:38)
--- NOTE | 2017-05-03 11:47 | WOCRNPDOC ---
WOCRN Advanced Assessment Note - Skin Integrity Problem, Advanced Assess Medial Abdomen Surgical Wound/Incision Dressing Type: ABD Pad (Surgeon and PA removed previous vac dressing) Dressing Description: Intact Exudate Amount: Minimal Exudate Color: Reddish/Yellow Exudate Characteristic(s): Serosanguinous Integumentary Issue Intervention: Dressing Applied (NPWT w/ 1 piece of black Granulofoam) Kelsey Wound Tissue: Intact Kelsey Wound Swelling: None Wound Bed Color: Red Wound Bed Constitution: Granulation Tissue, Smooth Tissue (non-granulating), Subcutaneous Fat Wound Edges: Well Defined Site Odor: None Site Measurement - Head-to-Toe Length X Width X Depth (cm): [id number] Skin Integrity Problem Comment: Previous vac dressing removed by surgeon and PA 30 minutes prior. Large, midline abdominal wound s/p closure of entercutaneous fistula. Wound bed a mix of granulating and smooth tissues, w/ scant subcutaneous fat along margins and no apparent necrosis. No tunneling or undermining evident, and exudate is serosanguinous w/ no enteric contents evident. Periwound skin is intact w/ no associated swelling or erythema. Patient c/o pain when edges of wound touched, but tolerated cleansing of the wound bed itself. Applied 1 large piece of black Granulofoam to wound bed, and resumed vac settings at -125mmHg, low, continuous suction. Wound care will follow up with patient again on Sunday 05/06 for next dressing change.
--- NOTE | 2017-05-03 16:16 | SOAPPROG ---
SOAP Progress Note Assessment/Plan: Assessment: 51-year-old male status post laparoscopy, laparotomy resection of enterocutaneous fistula, small bowel resection with ventral hernia repair, wound VAC placement postop day 2. 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 Physical exam Very alert, moves around the room easily Chest CTA bilaterally Abdomen wound VAC in place without any surrounding erythema or significant discharge from the wound VAC abdomen very soft, mildly distended, no bowel sounds upon auscultation greater than 1 minute Plan: Encouraged ambulation and explained the pathophysiology ileus to patient Wound VAC scheduled to be changed Saturday, we will attempt to view the wound at the time of change. Seen examined by Dr. De Souza. 05/02/17 12:14 Objective: Vital Signs Temp Pulse Resp BP Pulse Ox 38.1 C 96 20 107/78 92 05/03/17 14:00 05/03/17 14:00 05/03/17 14:00 05/03/17 14:00 05/03/17 14:00 Microbiology 04/30/17 08:11 Gram Stain - Final Abdomen - Eswab Laboratory Results 05/01/17 04:36 05/02/17 04:53 05/02/17 05/03/17 05/04/17 05:59 05:59 05:59 Intake Total 5612 2400 3783 Output Total 1150 1150 225 Balance 4540 5501 3805 ICD10 Worksheet Patient Problems: Problems Problem Status Onset Abdominal wall seroma Acute
[2017-05-04] MEDS: HEPARIN 5,000 UNIT/0.5 ML SYR SC SCH ×3 (06:19→21:47)
[2017-05-04] MEDS: cefOXitin SODIUM 1 GM in D5W 50 ML IV SCH (06:31)
[2017-05-04] MEDS: METOCLOPRAMIDE 10 MG/2 ML VIAL IVP SCH ×4 (06:31→22:43)
[2017-05-04] MEDS: OXYCODONE/APAP 5/325 TAB PO PRN ×4 (08:24→17:41)
[2017-05-04] MEDS: LISINOPRIL 10 MG TAB PO SCH (08:35)
--- NOTE | 2017-05-04 10:47 | SOAPPROG ---
SOAP Progress Note Assessment/Plan: Assessment: SP SB FISTULA RESECTON/ DOING WELL/ AFEBRILE/ WOUND VAC IN PLACE/ ABD SOFT, NONTENDER WITH BS AND FLATUS Plan:HOME IN AM WITH WOUND VAC/ CHANGE TO ORAL ABX 05/04/17 10:45 Objective: Vital Signs Temp Pulse Resp BP Pulse Ox 37.1 C 78 18 105/69 96 05/04/17 07:49 05/04/17 07:49 05/04/17 07:49 05/04/17 07:49 05/04/17 07:49 Microbiology 04/30/17 08:11 Gram Stain - Final Abdomen - Eswab Laboratory Results 05/01/17 04:36 05/02/17 04:53 05/03/17 05/04/17 05/05/17 05:59 05:59 04:59 Intake Total 2400 6588 Output Total 1150 965 250 Balance 1250 5623 -250 ICD10 Worksheet Patient Problems: Problems Problem Status Onset Abdominal wall seroma Acute
[2017-05-04] MEDS: AMOXICILLIN/CLAVULANATE POT 875/125 MG TAB PO SCH ×2 (11:52→21:47)
--- NOTE | 2017-05-04 17:57 | ASMTCMCOM ---
CM Note CM Note Notes: Reviewed chart for discharge plan, pt's progress. Pt s/p SB fistula resection w/ wound vac in place. Per MD notes, pt to discharge home 05/05/17 w/ home health care. Call placed to [facility] per prior CM notes - LVM x 2 for SANDRA Brady on-call to confirm start of care for 05/06/17; still awaiting call back. [facility] wound vac previously delivered for discharge; pt to sign paperwork on Saturday. [facility] paperwork to be faxed to [facility], once signature obtained. CM will cont to follow. Current Discharge Plan: Home w/ Home Health Care and wound vac Date Signed: 05/04/2017 05:56 PM Electronically Signed By:Brooklynn Torres RN
[2017-05-05] MEDS: OXYCODONE/APAP 5/325 TAB PO PRN ×4 (00:37→12:53)
[2017-05-05] MEDS: HEPARIN 5,000 UNIT/0.5 ML SYR SC SCH (03:11)
[2017-05-05 07:28] VITALS: RESP 16; O2SAT 94
--- NOTE | 2017-05-05 08:39 | SOAPPROG ---
SOAP Progress Note Assessment/Plan: Assessment: SP SB FISTULA RESECTON/ DOING WELL/ AFEBRILE/ WOUND VAC IN PLACE/ ABD SOFT, NONTENDER WITH BS AND FLATUS Plan:HOME IN AM WITH WOUND VAC/ CHANGE TO ORAL ABX 05/04/17 10:45 05/05/17 08:37 WOUND VAC OK/ AFEBRILE/ ABD SOFT/ +FLATUS/ NEEDS K+ RECHECKED/ HOME SOON Objective: Vital Signs Temp Pulse Resp BP Pulse Ox 37.2 C 81 16 124/83 H 94 05/05/17 07:26 05/05/17 07:26 05/05/17 07:26 05/05/17 07:26 05/05/17 07:26 Laboratory Results 05/01/17 04:36 05/02/17 04:53 05/04/17 05/05/17 05/06/17 06:59 05:59 05:59 Intake Total Output Total 200 Balance -200 ICD10 Worksheet Patient Problems: Problems Problem Status Onset Abdominal wall seroma Acute
[2017-05-05] MEDS: LISINOPRIL 10 MG TAB PO SCH (09:41)
[2017-05-05] MEDS: AMOXICILLIN/CLAVULANATE POT 875/125 MG TAB PO SCH (09:42)
[2017-05-05 11:42] VITALS: BP 142/93; PULSE 85; TEMP 98.7
--- NOTE | 2017-05-05 11:48 | PDIAF ---
- Diagnosis Diagnosis: ABD FISTULA Code Status: Full Code - Medication Management Discharge Medications: Medications to Continue on Transfer Lisinopril [Zestril 10 mg (*)] 10 mg PO DAILY 03/25/17 [Last Taken 04/15/17] Amoxicillin/Clavulanate Pot [Augmentin 875 MG TAB (*)] 875 mg PO BID #14 tab 11/14 [Last Taken Unknown] oxyCODONE/APAP 5/325 [Percocet 5/325 (*)] 1 - 2 tab PO Q4HRS PRN #30 tab [Last Taken Unknown] Discharge Medications: Refer to the Discharge Home Medication list for PRN reason. PICC Care - Routine: N/A - Orders Services needed: Home [facility]ci Care Face to Face: I certify that this patient was under my care and that I had the required [id number] encounter meeting the encounter requirements on the discharge day. My findings support the fact that the patient is homebound as defined in Home Care Face to Face Continued: CMS Chapter 7 Medicare Benefits Manual 30.1.1 , The condition of the patient is such that there exists a normal inability to leave home and consequently, leaving home would require a considerable and taxing effort. Diet Recommendation: no restrictions on diet Diet Texture: Regular Texture Diet Wound Care Instructions: WOUND VAC AT 125/ CHANGE M-W-F/ OFFICE 05/09 Activity/Weight Bearing Restrictions: NO HEAVY LIFTING > 20 # - Follow Up Care Current Providers and Referrals: Jesus Colon MD [Primary Care Provider] -
--- NOTE | 2017-05-05 14:24 | ASMTCMCOM ---
CM Note CM Note Notes: Reviewed chart, spoke w/ SANDRA Candelario regarding pt's progress. Per , pt to discharge home w/ home health care today. Call placed to [facility] ; spoke w/ SANDRA Brady on-call. Caitlyn confirmed start date of care for Sat05/06/17, nursing services only for wound care. Call placed to Dr. De Souza for Transfer of Care Summary, home care orders. Met w/ pt and pt's family - answered questions, discussed discharge plan, confirmed start date for home care on Sat05/06/17, all needed phone numbers provided, confirmed father's address/phone number. [facility] paperwork reviewed and signed w/ pt; signed form faxed to [facility] [phone]. LVM for SIMI Ramos rep to confirm receipt. Pt given copy of paperwork, additional copy placed in chart. [facility] discharge orders and paperwork faxed via [employer]. Pt to follow up on Saturday05/08/17 as directed. No IM signed, not applicable, pt has [facility]. CM avail for any further issues or concerns. Final Discharge Plan: Home to fathers w/ [facility] (RN) and [facility] wound vac Home wound vac information: Serial #: [id number] Model: [id number] [id number] ESTRELLA 2010-10 Date Signed: 05/05/2017 02:24 PM Electronically Signed By:Brooklynn Torres RN
--- NOTE | 2017-05-05 14:26 | ASDISCHSUM ---
Discharge Information Plan Status:Home with Home Health Medically Cleared to Leave:05/05/2017 Discharge Date:05/05/2017 01:00 PM D/C Disposition:Home Health Service [facility] D/C Disposition:Home, Routine, Self-Care Projected Discharge Date:05/03/2017 11:00 AM Transportation at D/C:Family Discharge Delay Reason: Follow-Up Date:05/03/2017 11:00 AM Discharge Slot:2 - 12:01 pm - 18:00 pm Final Diagnosis:SB fistula resection, laparoscopy, laparotomy, VH repair, wound vac placement Placement Information Referral Type:*Home Health Care Services Referral ID:[id number] Provider Name:[facility] Address 1:[address] [facility] [address] Phone Number: Address 2: Fax Number: City:[place] Selection Factors:Patient/Family Choice State:[place] Patient Contact Information Contact Name:ELSAARABELLAJESSY Relationship:Father Address:[address] [place] [address] Work Phone: City:[place] Alternate Phone: State/Zip Code:[place] [address] Email: Financial Information Financial Class:HMO and PPO Plans Primary Plan Desc:[employer] [facility] [employer] Primary Plan Number:[id number] Secondary Plan Desc: Secondary Plan Number: Assessment Information [facility] CM Progress Note CM Note CM Note Notes: Spoke w/surgery PA, pt will need home wound vac. FITZ submitted application to [facility] for a ready vac and faxed appropriate signed paperwork. FITZ also notified Yarelis at [facility] for RN to monitor wound vac, dc date unclear. Current DC Plan: Pt will dc home to father's home with wound vac and [facility] (RN) Date Signed: 05/01/2017 04:14 PM Electronically Signed By:Regi Hernandez RN [facility] CM Progress Note CM Note CM Note Notes: Reviewed chart for discharge plan, pt's progress. Pt s/p SB fistula resection w/ wound vac in place. Per notes, pt to discharge home 05/05/17 w/ home health care. Call placed to [facility] per prior CM notes - LVM x 2 for SANDRA Brady on-call to confirm start of care for Sat05/06/17; still awaiting call back. [facility] wound vac previously delivered for discharge; pt to sign paperwork on Saturday. [facility] paperwork to be faxed to [facility], once signature obtained. CM will cont to follow. Current Discharge Plan: Home w/ Home Health Care and wound vac Date Signed: 05/04/2017 05:56 PM Electronically Signed By:Brooklynn Torres RN [facility] Progress Note CM Note CM Note Notes: Reviewed chart, spoke w/ SANDRA Candelario regarding pt's progress. Per MD, pt to discharge home w/ home health care today. Call placed to [facility] ; spoke w/ SANDRA Brady on-call. Caitlyn confirmed start date of care for Sat05/06/17, nursing services only for wound care. Call placed to Dr. De Souza for Transfer of Care Summary, home care orders. Met w/ pt and pt's family - answered questions, discussed discharge plan, confirmed start date for home care on Sat05/06/17, all needed phone numbers provided, confirmed father's address/phone number. [facility] paperwork reviewed and signed w/ pt; signed form faxed to [facility] [phone]. LVM for Richard Trever rep to confirm receipt. Pt given copy of paperwork, additional copy placed in chart. [facility] discharge orders and paperwork faxed via [employer]. Pt to follow up on Saturday05/08/17 as directed. No IM signed, not applicable, pt has [facility]. CM avail for any further issues or concerns. Final Discharge Plan: Home to fathers w/ [facility] (RN) and I wound vac Home wound vac information: Serial #: [id number] Model: [id number] [id number] ESTRELLA 2010-10 Date Signed: 05/05/2017 02:24 PM Electronically Signed By:Brooklynn Torres RN Intervention Information Intervention Type:Education Family/Patient Date of Service:05/05/2017 02:24 PM Patient Type:Inpatient Staff Member:SANDRA Torres Taylor Hours:0.5 Discipline: Severity: Comment:See CM notes. Reviewed wound vac information, discharge plan, answered questions, signed and reviewed [facility] paperwork.
--- NOTE | 2017-05-19 14:52 | GOP ---
[f rep st] OPERATIVE REPORT DATE OF OPERATION: 04/30/2017 SURGEON: Carson De Souza MD SAND SCREENER: MIKA Isidro ANESTHESIOLOGIST: Dr. Bains PREOPERATIVE DIAGNOSIS: Enterocutaneous fistula. POSTOPERATIVE DIAGNOSIS: Enterocutaneous fistula plus ventral hernia, plus foreign body and abscess. PROCEDURE PERFORMED: Laparoscopy with laparotomy, resection of enterocutaneous fistula with small reymundo wel resection x2, drainage of abdominal wall abscess and removal foreign body, wound VAC placement, a dhesiolysis, and ventral hernia repair. FINDINGS: The patient was found to have an abdominal wall abscess, persistent ventral hernia, a shadia ined mesh from previous hernia repair, and a small bowel enterocutaneous fistula. His second loop of small bowel also adherent to the mesh and about to fistulize itself. DESCRIPTION OF PROCEDURE: The patient was taken to the operating room where he received satisfactory general endotracheal anesthesia by Dr. Bains. He was placed in supine position, prepped and drap ed in the usual sterile fashion. A short incision was made in the left upper quadrant. A Veress nee dle was inserted. Pneumoperitoneum was established. Trocar was introduced. Adequate visualization was obtained; however, the patient had marked intraabdominal adhesions from his previous surgery. A second trocar was placed in a free space. Adhesiolysis was performed with Harmonic scalpel until a s afe place was created for entry into the abdomen. A midline incision was then made around the fistul a tract with direction via the laparoscope. The abdomen was carefully entered. Wide excision of the fistulous site was done in the abdominal wall. The small bowel was then freed up from the fistula, and the fistula tract was resected using a TED stapler. The small bowel was reanastomosed with appli cation of the TED stapler and a cross-application at the insertion site. The suture line was reinfor herminio with interrupted 3-0 silk sutures, and the mesentery was closed with 3-0 Vicryl. A second loop o f bowel was also adherent to this mesh and abscess pocket. It too was resected in a similar manner a nd reapproximated the same way. Further retained mesh was removed. Abscess pocket was irrigated and freed up. The wound was irrigated. The fascia was then closed with interrupted #1 PDS sutures. Th e skin and subcutaneous tissue were left open, and a wound VAC was placed to clear up the abscess cav ity. The specimen was sent to Pathology. The wound was infiltrated with 0.5% Marcaine. He tolerate d the procedure well, was taken to recovery room in good condition. There were no complications. /[id number]/MODL
== END 2017-05-05 13:00 | disposition home or self-care (01) | DRG 330 ==
LOC: F3E 06:09
PROVIDERS: ADMIT Surgery; ATTEND Surgery
DX: K63.2 Fistula of intestine (principal); L02.211 Cutaneous abscess of abdominal wall; K43.2 Incisional hernia without obstruction or gangrene; K56.51 Intestinal adhesions [bands], with partial obstruction; Z53.31 Laparoscopic surgical procedure converted to open procedure
CPT/HCPCS: J0694; J0697; J1100; J1170; J1885; J2250; J2405; J2704; J2765; J3010

== ENCOUNTER 2017-05-07 07:20 | Emergency (ER) | payer OTHER ==
--- NOTE | 2017-05-07 07:34 | EDPHY ---
H & P Time Seen by Provider: 05/07/17 07:32 HPI/ROS: CHIEF COMPLAINT: Abdominal pain HISTORY OF PRESENT ILLNESS: Patient had bowel surgery [address] De Souza to repair an enterocutaneous fistula. He has a wound VAC and had some problems with dehydration during his hospitalization a presents today with increasing abdominal pain for the last 3 days. It is generalized and associated with feeling constipated and no bowel movement. He has tried multiple laxatives without any change in his symptoms. He took 1 oxycodone 2 days ago and 2 yesterday for postoperative pain. Pain does not radiate. Not associated with vomiting or fever. Symptoms moderate now, 6 or 01/07. REVIEW OF SYSTEMS: Eye: no change in vision ENT: no sore throat Cardiac: no chest pain or syncope Pulmonary: no cough or SOB Abdomen: HPI Musculoskeletal: no back pain Skin: Wound VAC in place Neuro: no headache Constitutional: no fever : no urinary symptoms A comprehensive 10 point review of systems is otherwise negative aside from elements mentioned in the history of present illness. PAST MEDICAL HISTORY: Abdominal surgery as documented above, hypertension, diverticulitis with colostomy in 2001; take down in 2002 Social history: Here with his father General Appearance: Alert and conversant, cooperative. Eyes: No scleral icterus. ENT, Mouth: Normal mucous membranes. Respiratory: Normal respiratory effort, breath sounds equal, lungs are clear to auscultation. Cardiovascular: Regular rate and rhythm. Gastrointestinal: Mildly distended with bilateral lower quadrant tenderness and not rebound or guarding. Bowel sounds present. Wound VAC in place. Rectal exam performed by myself shows soft stool at the tip of the finger but brownish yellow and no melena. Neurological: Alert and oriented x3. Normally conversant. Ambulatory. Skin: Warm and dry, no rashes. Musculoskeletal: No peripheral edema and no joint swelling. Psychiatric: Not agitated. Emergency Department course/MDM: Plan for i-STAT and CT scanning, to establish constipation versus mechanical obstruction or other postoperative problem. Discussed and consented. 803: creat 0.7, CT with IV contrast. 915: CT per Isuani shows some mesenteric inflammation but otherwise negative. No postoperative fluid collection, no bowel obstruction. 930: Discussed with Gil DeS ouza, requested enema. 1120: Improving after bowel movement, plan to discharge home with symptomatic treatment for constipation. Smoking Status: Never smoked Constitutional: Initial Vital Signs Temperature (C) 36.7 C 05/07/17 07:23 Heart Rate 83 05/07/17 07:23 Respiratory Rate 18 05/07/17 07:23 Blood Pressure 143/97 H 05/07/17 07:23 O2 Sat (%) 93 05/07/17 07:23 O2 Delivery Mode Room Air Allergies/Adverse Reactions: No Known Allergies Allergy (Verified 05/07/17 07:22) Home Medications: Medication Instructions Recorded Lisinopril [Zestril 10 mg (*)] 10 mg PO DAILY 03/25/17 Amoxicillin/Clavulanate Pot 875 mg PO BID #14 tab 05/05/17 [Augmentin 875 MG TAB (*)] oxyCODONE/APAP 5/325 [Percocet 1 - 2 tab PO Q4HRS PRN #30 tab 05/05/17 5/325 (*)] Medical Decision Making - Diagnostics Imaging Results: Imaging Impressions Abdomen CT 05/07/17 08:03 Impression: 1. Resection of periumbilical fluid collection and mesh since March 25, 2017. 2. New inflammatory stranding in the upper and mid mesentery with minimal postsurgical fluid measuring 2 x 2.5 cm. No definite abscess. 3. Diverticulosis without diverticulitis. 4. No evidence of constipation or bowel obstruction. Findings discussed with Emergency Department physician, Yair Castrejon, at 0900 hours, 05/07/2017. Final report concurs with initial preliminary interpretation. - Data Points Laboratory Results: Laboratory Results 05/07/17 07:55 05/07/17 07:55 05/07/17 05/07/17 05/07/17 07:55 07:55 07:47 WBC 9.34 10^3/uL 10^3/uL (3.80-9.50) RBC 4.28 10^6/uL L 10^6/uL (4.40-6.38) Hgb 12.7 g/dL L g/dL (13.7-17.5) POC Hgb 13.3 gm/dL L gm/dL (13.7-17.5) Hct 37.1 % L % (40.0-51.0) POC Hct 39 % L % (40-51) MCV 86.7 fL fL (81.5-99.8) MCH 29.7 pg pg (27.9-34.1) MCHC 34.2 g/dL g/dL (32.4-36.7) RDW 12.7 % % (11.5-15.2) Plt Count 396 10^3/uL 10^3/uL (150-400) MPV 10.1 fL fL (8.7-11.7) Neut % (Auto) 67.4 % % (39.3-74.2) Lymph % (Auto) 19.0 % % (15.0-45.0) [place] % (Auto) 8.4 % % (4.5-13.0) Eos % (Auto) 3.2 % % (0.6-7.6) Baso % (Auto) 0.7 % % (0.3-1.7) Nucleat RBC Rel Count 0.0 % % (0.0-0.2) Absolute Neuts (auto) 6.30 10^3/uL 10^3/uL (1.70-6.50) Absolute Lymphs (auto) 1.77 10^3/uL 10^3/uL (1.00-3.00) Absolute Monos (auto) 0.78 10^3/uL 10^3/uL (0.30-0.80) Absolute Eos (auto) 0.30 10^3/uL 10^3/uL (0.03-0.40) Absolute Basos (auto) 0.07 10^3/uL 10^3/uL (0.02-0.10) Absolute Nucleated RBC 0.00 10^3/uL 10^3/uL (0-0.01) Immature Gran % 1.3 % H % (0.0-1.1) Immature Gran # 0.12 10^3/uL H 10^3/uL (0.00-0.10) POC Sodium 146 mEq/L H mEq/L (134-144) Sodium 144 mEq/L mEq/L (134-144) POC Potassium 3.7 mEq/L mEq/L (3.3-5.0) Potassium 3.9 mEq/L mEq/L (3.5-5.2) POC Chloride 106 mEq/L mEq/L (97-110) Chloride 107 mEq/L mEq/L (97-110) Carbon Dioxide 26 mEq/l mEq/l (22-31) Anion Gap 11 mEq/L mEq/L (8-16) POC BUN 5 mg/dL L mg/dL (7-23) BUN 7 mg/dL mg/dL (7-23) Creatinine 0.8 mg/dL mg/dL (0.7-1.3) POC Creatinine 0.8 mg/dL mg/dL (0.7-1.3) Estimated GFR > 60 Glucose 93 mg/dL mg/dL (70-100) POC Glucose 97 mg/dL mg/dL (70-100) Calcium 8.6 mg/dL mg/dL (8.5-10.4) Total Bilirubin 0.4 mg/dL mg/dL (0.1-1.4) Conjugated Bilirubin 0.1 mg/dL mg/dL (0.0-0.5) Unconjugated Bilirubin 0.3 mg/dL mg/dL (0.0-1.1) AST 32 IU/L IU/L (17-59) ALT 48 IU/L IU/L (21-72) Alkaline Phosphatase 99 IU/L IU/L (38-126) Total Protein 5.4 g/dL L g/dL (6.3-8.2) Albumin 2.9 g/dL L g/dL (3.5-5.0) Lipase 61 IU/L IU/L (23-300) Medications Given: Discontinued Medications Sodium Chloride (Ns) 1,000 mls @ 0 mls/hr IV EDNOW ONE; Wide Open PRN Reason: Protocol Stop: 05/07/17 07:46 Last Admin: 05/07/17 08:05 Dose: 1,000 mls Point of Care Test Results: 05/07/17 07:47 POC Sodium 146 H POC Potassium 3.7 POC Chloride 106 POC BUN 5 L POC Creatinine 0.8 POC Glucose 97 Departure - Departure Disposition: Home, Routine, Self-Care Clinical Impression: Abdominal pain Qualifiers: Abdominal location: generalized Qualified Code(s): R10.84 - Generalized abdominal pain Constipation Qualifiers: Constipation type: unspecified constipation type Qualified Code(s): K59.00 - Constipation, unspecified Condition: Good Instructions: Constipation (ED) Referrals: Carson De Souza MD [Medical Doctor] - As per Instructions
[2017-05-07] MEDS ORDERED: NS 1,000 ML IV ONE (07:45)
[2017-05-07 08:04] LABS: PLATELET COUNT 396 10^3/uL (150-400)
[2017-05-07] MEDS ORDERED: IOPAMIDOL (ISOVUE-300) 100 ML BTL ONE (08:13)
[2017-05-07 12:22] VITALS: BP 132/92; PULSE 82; RESP 14; TEMP 97.7; O2SAT 94
== END 2017-05-07 12:19 | disposition home or self-care (01) ==
DX: K59.00 Constipation, unspecified (principal); I10 Essential (primary) hypertension; E86.9 Volume depletion, unspecified
CPT/HCPCS: 82947-QW; Q9967